=== PATIENT | female | born 1975 | race Caucasian/White ===

== ENCOUNTER 2018-05-31 19:22 | Emergency (ER) | payer MEDICAID ==
[2018-05-31] MEDS: predniSONE 20 MG TAB PO (21:34)
[2018-05-31] MEDS: ONDANSETRON (ODT) 4 MG TAB ODT (21:34)
[2018-05-31] MEDS: IBUPROFEN 600 MG TAB PO (21:34)
[2018-05-31] MEDS: ONDANSETRON 4 MG INJ IV (21:35)
[2018-05-31] MEDS: IPRATROPIUM (NEB) 0.5 MG/2.5 ML AMP NEB (21:37)
[2018-05-31] MEDS: ALBUTEROL 0.083% (NEB) 2.5 MG/3 ML AMP NEB (21:37)
== END 2018-05-31 22:42 | disposition home or self-care (01) ==
LOC: FTE 19:22
DX: J01.00 Acute maxillary sinusitis, unspecified (principal); J40 Bronchitis, not specified as acute or chronic; R40.2412 Glasgow coma scale score 13-15, at arrival to emergency department
CPT/HCPCS: 94644; 99284-25